=== PATIENT | male | born 1960 | race Caucasian/White ===

== ENCOUNTER 2020-02-21 19:00 | Emergency (ER) | payer OTHER, SELFPAY ==
[2020-02-21 19:02] VITALS: BP 156/96; PULSE 75; RESP 16; TEMP 36.8; O2SAT 96; BMI 33.5
--- NOTE | 2020-02-21 19:28 | ED.VIS.GEN ---
History of Present Illness Chief Complaint: Bite Informant: Patient Onset: Yesterday Context: Sudden Onset Timing: Continuous Quality: Tightness left forearm Location: Left forearm Current Severity: Moderate Maximum Severity: Moderate Worsened by: Hymenoptera envenomation Relieved by: Nothing Associated Symptoms: Rash, swelling and itching Narrative: Patient is a 59-year-old male who presents with swelling and redness to his left forearm after being stung by what he believes is a hornet. The arm is continued to swell. He reports a red rash that is pruritic. He denies fever, chills or night sweats. He denies paresthesia anesthesia or weakness of his left upper extremity. Prior similar symptoms: No Recent Illness/Hospitalization: No - Past Medical History (1) No significant past medical history Status: Acute Past Medical History - Allergies and Home Meds Allergies/Adverse Reactions: Allergies aspirin [ASA] Allergy (Verified 02/21/20 19:01) PT UNSURE OF REACTION Penicillins [PCN] Allergy (Verified 02/21/20 19:01) PT UNSURE OF REACTION Primary Care Physician: Ketan Sanchez III, MD [Primary Care Provider] - Prior records reviewed: No Past Medical History: None Surgical History: noncontributory Lives: Spouse/ Significant Other Alcohol: None Drugs: None Review of Systems General: Denies: Chills, Fever ENT: Denies: Rhinorrhea, Sore throat Cardiovascular: Denies: Chest pain, Palpitations Respiratory: Denies: Dyspnea Musculoskeletal: Reports: Swelling. Denies: Myalgias, Arthralgias, Neck pain, Back pain, Extremity Pain Skin: Reports: Rash, Wounds - Menactra envenomation site noted.. Denies: Abscess, Abrasions Neurological: Denies: Weakness, Parasthesia, Numbness Hematologic: Denies: Easy bruising, Easy bleeding Allergy: Denies: Uticaria, Swelling of the mouth, Swelling of the tongue Physical Exam Vital Signs/Narrative: Vital Signs Temp Pulse Resp BP Pulse Ox 02/21/20 19:02 98.2 F 75 16 156/96 H 96 Inital Vital Signs reviewed: Yes General: Well nourished, Well developed, Obese Head: Normocephalic, Atraumatic Eyes: Perrl, EOMI. Negative for: Pale conjunctiva, Scleral icterus Cardiovascular: Regular rate, Regular rhythm Respiratory: No distress Extremities: Nontender, Edema - There is swelling and edema of the left forearm. There is bogginess over the left olecranon process. The rash is erythematous and blanches. There is no induration, warmth, lymphangitis, epitrochlear axillary lymphadenopathy.. Negative for: No edema Skin: Normal color, No Trauma, Rash. Negative for: Cyanosis, Diaphoresis, Jaundice Neurological: Alert, Oriented x3, Cranial nerves II-XII grossly intact, Normal Strength, Normal Sensation Psychological: Normal affect Diagnostic/Tx/Re-eval - Medical Decision Making Presents with local allergic reaction. Presently there is no evidence of cellulitis. Treatment is ice, elevation and H1 ana m. ED Disposition - Plan for ED Patient: Disposition: Home or Assisted Living Diagnosis: Sting from hornet, wasp, or bee, Allergic reaction hornet sting Instructions: ED Insect Sting Local Reaction Referrals: Ketan Sanchez III, MD [Primary Care Provider] - 3-5 Days if not improving
[2020-02-21 19:58] VITALS: RESP 18
== END 2020-02-21 19:59 | disposition home or self-care (01) ==
LOC: ED 19:44
PROVIDERS: Emergency Provider Emergency Medicine; PCP Family Medicine
DX: T63.451A Toxic effect of venom of hornets, accidental (unintentional), initial encounter (principal); Y92.9 Unspecified place or not applicable; Z88.0 Allergy status to penicillin; Z88.6 Allergy status to analgesic agent
CPT/HCPCS: 99282

== ENCOUNTER 2020-07-12 14:18 | Emergency (ER) | payer OTHER, SELFPAY ==
[2020-07-12 14:18] VITALS: BP 142/86; PULSE 75; RESP 18; TEMP 36.6; O2SAT 96; BMI 34.8
--- NOTE | 2020-07-12 14:34 | ED.VIS.GEN ---
History of Present Illness Chief Complaint: Nausea/Vomiting Informant: Patient Narrative: 60-year-old male with a previous history of hypertension presents for evaluation of nausea and vomiting. Patient states he normally works at the [employer] but has been working down here filling in. He states his monitor yesterday was quite low compared to his normal monitor. Towards the end of his workday began to have pain sides of his neck going into his more towards his left shoulder. Worse with movement and touch. He went to the chiropractor. He developed nausea and went to bed early last night. He woke this morning went into work. He stopped by [employer] and ate some breakfast. His work went on he got more more nauseated began to get lightheaded. He eventually decided he needed to leave work and had emesis x2. He does not believe he has had any diarrhea. No fevers. He states his girlfriend who is a nurse states that he looks jaundiced and is short of breath. She denies any chest pain. No cough. No abdominal pain, bloating, or cramping. Past Medical History - Allergies and Home Meds Allergies/Adverse Reactions: Allergies aspirin [ASA] Allergy (Verified 07/12/20 14:21) PT UNSURE OF REACTION Penicillins [PCN] Allergy (Verified 07/12/20 14:21) PT UNSURE OF REACTION Primary Care Physician: Ketan Sanchez III, MD [Primary Care Provider] - 3-5 Days if not improving Past Medical History: - - Hypertension Surgical History: noncontributory Lives: Spouse/ Significant Other Smoking Status: Former smoker Drugs: None Review of Systems General: Denies: Chills, Fever, Sweats Eyes: Denies: Visual changes - bilaterally, Diplopia ENT: Denies: Rhinorrhea, Sore throat Cardiovascular: Denies: Chest pain, Palpitations Respiratory: Denies: Dyspnea, Cough, Dyspnea on exertion Gastrointestinal: Reports: Nausea, Vomiting. Denies: Abdominal pain, Diarrhea, Melena, Hematochezia Genitourinary: Denies: Dysuria, Hematuria, Frequency Musculoskeletal: Reports: Neck pain. Denies: Back pain, Extremity Pain Skin: Denies: Rash, Wounds Neurological: Denies: Headache, Weakness, Numbness Physical Exam Vital Signs/Narrative: Vital Signs Temp Pulse Resp BP Pulse Ox 07/12/20 14:18 98 F 75 18 142/86 H 96 Inital Vital Signs reviewed: Yes General: Well nourished, Well developed, No Acute Distress Head: Normocephalic, Atraumatic Eyes: Perrl, EOMI ENT: Moist mucous membranes, No rhinorrhea Neck: Supple, Nontender Cardiovascular: Regular rate, Regular rhythm, No murmurs Respiratory: No distress, CTA bilaterally, Chest nontender Abdomen: Soft, Nontender, Nondistended, Normal bowel sounds Back: Nontender, Normal Inspection Extremities: Nontender, No edema Skin: Normal color, No rash Neurological: Alert, Oriented x3, Cranial nerves II-XII grossly intact, Normal Strength, Normal Sensation Psychological: Normal affect, Normal Mood Diagnostic/Tx/Re-eval Laboratory Last Values WBC 13.2 K/mm3 (4.4-11.0) H 07/12/20 14:55 RBC 6.53 M/mm3 (4.6-6.2) H 07/12/20 14:55 Hgb 17.5 g/dL (13.0-16.5) H 07/12/20 14:55 Hct 54.4 % (40-54) H 07/12/20 14:55 MCV 83.3 fL (80-94) 07/12/20 14:55 MCH 26.8 pg (27.0-32.0) L 07/12/20 14:55 MCHC 32.2 g/dL (32-36) 07/12/20 14:55 RDW Std Deviation 37.9 fl (35.1-43.9) 07/12/20 14:55 RDW Coeff of Noemi 13.2 % (11.6-14.6) 07/12/20 14:55 Plt Count 187 K/mm3 (150-450) 07/12/20 14:55 MPV 11.2 fl (6.2-12.0) 07/12/20 14:55 Immature Gran % (Auto) 0.300 % (0.0-0.9) 07/12/20 14:55 Neut % (Auto) 89.9 % (47-70) H 07/12/20 14:55 Lymph % (Auto) 3.3 % (19-41) L 07/12/20 14:55 [place] % (Auto) 6.1 % (0-10) 07/12/20 14:55 Eos % (Auto) 0.2 % (0-5) 07/12/20 14:55 Baso % (Auto) 0.2 % (0-1) 07/12/20 14:55 Absolute Neuts (auto) 11.9 X10^3/uL (2.0-7.7) H 07/12/20 14:55 Absolute Lymphs (auto) 0.44 X10^3/uL (0.83-4.51) L 07/12/20 14:55 Nucleated RBC % 0 % (0-5) 07/12/20 14:55 Sodium 141 mmol/L (136-145) 07/12/20 14:55 Potassium 4.0 mmol/L (3.5-5.1) 07/12/20 14:55 Chloride 105 mmol/L (98-107) 07/12/20 14:55 Carbon Dioxide 28.0 mmol/L (21.0-32.0) 07/12/20 14:55 Anion Gap 8 (5-15) 07/12/20 14:55 BUN 24 mg/dL (7-18) H 07/12/20 14:55 Creatinine 1.28 mg/dL (0.70-1.30) 07/12/20 14:55 Estim Creat Clear Calc 64.55 ml/min 07/12/20 14:55 Est GFR (MDRD) Af Amer 74 mL/min (>60) 07/12/20 14:55 Est GFR (MDRD) Non-Af 61 mL/min (>60) 07/12/20 14:55 BUN/Creatinine Ratio 18.8 RATIO (10-20) 07/12/20 14:55 Glucose 108 mg/dL (74-106) H 07/12/20 14:55 Calcium 9.1 mg/dL (8.5-10.1) 07/12/20 14:55 Total Bilirubin 1.10 mg/dL (0.20-1.00) H 07/12/20 14:55 AST 22 U/L (15-37) 07/12/20 14:55 ALT 39 U/L (16-61) 07/12/20 14:55 Alkaline Phosphatase 87 U/L (45-117) 07/12/20 14:55 Troponin I < 0.015 ng/mL (<0.045) 07/12/20 14:55 Total Protein 8.7 g/dL (6.4-8.2) H 07/12/20 14:55 Albumin 4.8 g/dL (3.2-5.0) 07/12/20 14:55 Globulin 3.9 g/dL (2.2-4.2) 07/12/20 14:55 Albumin/Globulin Ratio 1.2 RATIO (0.9-2.4) 07/12/20 14:55 Lipase 97 U/L (73-393) 07/12/20 14:55 Clinical Impression(s) from Imaging Studies Abdomen/Pelvis CT 07/12/20 15:29 IMPRESSION: Fluid distention of the small bowel loops as well as fluid distended stomach. Gas and fecal material are seen throughout the colon. Follow-up is recommended. Fatty infiltration of the liver. Right renal cyst. Electronically Signed: Booker Wood, at 15:55 EST , Service support , - EKG Initial EKG Interpretation: Sinus Rhythm, RBBB - EKG demonstrates a normal sinus rhythm with right bundle branch block at a rate of 73 bpm. Prior comparison is 02 May 2009 no right bundle branch block was noted. - Medical Decision Making Blood work shows a mild leukocytosis and slightly elevated creatinine. Urinalysis is normal. CT abdomen pelvis demonstrates fluid-filled stomach, intestines and small bowel. He received IV fluids and Phenergan. I think most likely this is going to be a gastroenteritis. I would expect that he would develop diarrhea soon. His Covid test is negative. I think his lightheadedness is probably vagal mediated. Would recommend rest antinausea medications and Imodium as needed. ED Disposition - Plan for ED Patient: Disposition: Home or Assisted Living Diagnosis: Gastroenteritis Instructions: ED Gastroenteritis, Viral (Adult) Prescriptions: proMETHazine tablet [Phenergan] 25 mg PO Q6H PRN PRN #14 tab PRN Reason: Nausea Prescription Printed Referrals: Ketan Sanchez III, MD [Primary Care Provider] - 3-5 Days if not improving Additional Instructions: Imodium as needed for diarrhea if develops.
--- NOTE | 2020-07-12 14:36 | EKG12_ITS ---
Test Reason : SOB Blood Pressure : / mmHG Vent. Rate : 073 BPM Atrial Rate : 073 BPM P-R Int : 170 ms QRS Dur : 128 ms QT Int : 390 ms P-R-T Axes : 043 108 046 degrees QTc Int : 429 ms Normal sinus rhythm Right bundle branch block Abnormal ECG Confirmed by EUSEBIA NORRIS, AMELIA ([id number]), content editor ERIK SCHRADER ([id number]) on 07/13/2020 9:34:50 AM Referred By: JUDY Confirmed By:AMELIA LAWS MD
[2020-07-12] MEDS: proMETHazine 25 MG/ML Syringe 12.5 MG IV (14:54)
[2020-07-12] MEDS: 0.9% Normal Saline 1,000 ML 1000 ML IV (14:54)
[2020-07-12] MEDS: Ketorolac 15 MG/ML Vial IV (14:54)
[2020-07-12 15:09] LABS: Absolute Lymphocyte Count 0.44 X10^3/uL (0.83-4.51); Absolute Neutrophil Count 11.9 X10^3/uL (2.0-7.7); Basophil# 0.02 X10^3/uL; Basophil% 0.2 % (0-1); Eosinophil# 0.03 X10^3/uL; Eosinophils% 0.2 % (0-5); Hematocrit 54.4 % (40-54); Hemoglobin 17.5 g/dL (13.0-16.5); Lymphocyte # 0.44 X10^3/ul (4.0); Lymphocyte % 3.3 % (19-41); Mean Corp Hgb Conc 32.2 g/dL (32-36); Mean Corpuscular Hgb 26.8 pg (27.0-32.0); Mean Corpuscular Volume 83.3 fL (80-94); Mean Platelet Vol. 11.2 fl (6.2-12.0); Monocyte# 0.81 X10^3/uL; Monocyte% 6.1 % (0-10); NRBC Flagged by Analyzer 0 % (0-5); Neutrophil # 11.87 X10^3/uL (2.7-7.7); Neutrophil % 89.9 % (47-70); POSITIVE DIFFERENTIAL YES; Platelet Count 187 K/mm3 (150-450); RBC Distribution Width CV 13.2 % (11.6-14.6); RBC Distribution Width SD 37.9 fl (35.1-43.9); Red Blood Count 6.53 M/mm3 (4.6-6.2); White Blood Count 13.2 K/mm3 (4.4-11.0)
[2020-07-12 15:10] LABS: Differential Indicated SCAN CRITERIA MET
[2020-07-12 15:28] LABS: ALB/GLOB Ratio 1.2 RATIO (0.9-2.4); AST(SGOT) 22 U/L (15-37); Alanine Aminotransfer ALT/SGPT 39 U/L (16-61); Albumin, Serum 4.8 g/dL (3.2-5.0); Alkaline Phosphatase 87 U/L (45-117); Anion Gap 8 (5-15); BUN 24 mg/dL (7-18); BUN/Creat Ratio 18.8 RATIO (10-20); Calcium,Total 9.1 mg/dL (8.5-10.1); Chloride 105 mmol/L (98-107); Creatinine, Serum 1.28 mg/dL (0.70-1.30); EST Glomerular Filtration Rate 61 mL/min (>60); Est Glom Filt Rate - Afr Amer 74 mL/min (>60); Estimated Creatinine Clearance 64.55 ml/min; Globulin 3.9 g/dL (2.2-4.2); Glucose 108 mg/dL (74-106); Lipase 97 U/L (73-393); Protein, Total 8.7 g/dL (6.4-8.2); Sodium Level 141 mmol/L (136-145)
--- NOTE | 2020-07-12 15:29 | CT_ITS ---
STUDY: CT ABDOMEN AND PELVIS WITH CONTRAST REASON FOR EXAM: Male, 60 years old. Nausea, vomiting today. Hx hypertension. RADIATION DOSAGE (If Supplied By Facility): CTDIvol = ( 19.93 ) mGy, DLP = ( 1381.53 ) mGycm TECHNIQUE: Transaxial images were obtained from the dome of the diaphragm to the symphysis pubis without oral contrast. IV 100mL Isovue-300 was administered. Sagittal and coronal images were reconstructed. Individualized dose optimization techniques were used for this CT. COMPARISON: None. FINDINGS: Increased markings at the lung bases suggestive of bibasilar atelectasis. Coronary artery calcification. There is decreased attenuation of the liver consistent with steatosis. Normal gallbladder and extrahepatic biliary system. Normal spleen. Normal pancreas. Normal bilateral adrenal glands. There is a 3.4 cm cyst in the posterior aspect of the right kidney. Normal left kidney. Fluid distention of the stomach. Minimally fluid distention of the small bowel loops. Gas and fecal material are seen in the colon. Follow-up is recommended. Normal colon. The appendix is visualized and appears normal. Normal abdominal aorta. Normal inferior vena cava. Normal retroperitoneum. Normal urinary bladder. There are prostatic calcifications. Normal abdominal wall. There are diffuse degenerative changes of the visualized lumbar spine. CT/Abdomen/Pelvis W IV Cont ONLY IMPRESSION: Fluid distention of the small bowel loops as well as fluid distended stomach. Gas and fecal material are seen throughout the colon. Follow-up is recommended. Fatty infiltration of the liver. Right renal cyst. Electronically Signed: Booker Wood, at 15:55 EST , Service support ,
[2020-07-12 16:43] LABS: Bacteria 0 SEEN /hpf (None Seen); Mucous, Urine 0 SEEN /hpf (<or=2+); Red Blood Cells-Urine 0 SEEN /hpf (0-5); White Blood Cells 0 SEEN /hpf (0-5)
[2020-07-12 16:51] LABS: Color, Urine Yellow (Yellow); Glucose, Dipstick Normal (Normal); Ketone-Dipstick 15 mg/dl (Negative); Leukocyte Esterase-Dipstick Negative /ul (Negative); Nitrite-Dipstick Negative (Negative); Occult Blood-Urine Negative /ul (Negative); Protein-Dipstick Negative (Negative); Urine Bilirubin Dipstick Negative (Negative); Urine Clarity Sl. Cloudy (Clear); Urine Urobilinogen Normal (Normal)
[2020-07-12 17:20] LABS: Squamous Epithelial Cells - UA 0-5 SEEN /hpf (0-5)
[2020-07-12 18:03] VITALS: BP 146/83; PULSE 76; RESP 18; O2SAT 95
== END 2020-07-12 18:05 | disposition home or self-care (01) ==
PROVIDERS: Emergency Provider Emergency Medicine; PCP Family Medicine
DX: K52.9 Noninfective gastroenteritis and colitis, unspecified (principal); I45.10 Unspecified right bundle-branch block; K76.0 Fatty (change of) liver, not elsewhere classified; N28.1 Cyst of kidney, acquired; I10 Essential (primary) hypertension; Z87.891 Personal history of nicotine dependence; Z88.0 Allergy status to penicillin; Z88.6 Allergy status to analgesic agent
CPT/HCPCS: 74177; 80053; 81001; 83690; 84484; 85025; 87426; 93005; 96361; 96374; 96375; 99283; J7030; Q9967; A4216